=== PATIENT | male | born 1975 | race Caucasian/White ===

== ENCOUNTER 2023-03-02 13:12 | Inpatient (IN) | payer SELFPAY ==
[~2023-03-02] VITALS: Ht 188 cm; Wt 77.7 kg
[2023-03-02] MEDS ORDERED: MOM 30ML SUSPENSION UDC PO PRN (14:05)
[2023-03-02] MEDS ORDERED: MAALOX 30 ML SUSP *UDC PO PRN (14:05)
[2023-03-02] MEDS ORDERED: OLANZapine ORAL DISINTEGRATING TAB 5MG PO PRN (14:05)
[2023-03-02] MEDS ORDERED: diphenhydrAMINE 25MG CAP PO PRN (14:05)
[2023-03-02] MEDS ORDERED: traZODone 50 MG TAB PO PRN (14:05)
[2023-03-02] MEDS ORDERED: IBUPROFEN 400MG TAB PO PRN (14:05)
[2023-03-02] MEDS ORDERED: ACETAMINOPHEN TAB 650MG DOSE (2X325MG) PO PRN (14:05)
[2023-03-03] MEDS ORDERED: LOSARTAN 50MG TABLET PO SCH (09:00)
[2023-03-04] MEDS ORDERED: MOM 30ML SUSPENSION UDC PO PRN (15:25)
[2023-03-04] MEDS ORDERED: IBUPROFEN 400MG TAB PO PRN (15:25)
[2023-03-04] MEDS ORDERED: traZODone 50 MG TAB PO PRN (15:25)
[2023-03-04] MEDS ORDERED: MAALOX 30 ML SUSP *UDC PO PRN (15:25)
[2023-03-04] MEDS ORDERED: LORazepam 1 MG TAB PO PRN (15:25)
[2023-03-04] MEDS ORDERED: ACETAMINOPHEN TAB 650MG DOSE (2X325MG) PO PRN (15:25)
[2023-03-04] MEDS ORDERED: **hydrALAZINE** 50 MG TAB PO PRN (16:30)
[2023-03-04 17:22] VITALS: BP 142/96; TEMP 98; O2SAT 99
[2023-03-04] MEDS: diphenhydrAMINE 25MG CAP PO PRN (19:08)
[2023-03-04] MEDS: LOSARTAN 50MG TABLET PO SCH (20:12)
[2023-03-04] MEDS: DOXYCYCLINE HYCLATE 100MG TABLET PO SCH (20:13)
[2023-03-04] MEDS: LABETALOL 100MG TAB PO SCH (20:13)
[2023-03-04] MEDS ORDERED: DOXYCYCLINE HYCLATE 100MG TABLET PO SCH (21:00)
[2023-03-05] MEDS: diphenhydrAMINE 25MG CAP PO PRN (02:03)
[2023-03-05 06:46] VITALS: BP 170/100; TEMP 99.1; O2SAT 99
[2023-03-05 06:51] VITALS: BP 182/110
[2023-03-05 08:28] VITALS: BP 138/89
[2023-03-05] MEDS: DOXYCYCLINE HYCLATE 100MG TABLET PO SCH ×2 (08:43→19:59)
[2023-03-05] MEDS: CHLORTHALIDONE 25 MG TAB PO SCH (08:43)
[2023-03-05] MEDS: LOSARTAN 50MG TABLET PO SCH ×2 (08:44→19:59)
[2023-03-05] MEDS: LABETALOL 100MG TAB PO SCH ×3 (08:44→19:59)
[2023-03-05 12:44] VITALS: BP 118/80
[2023-03-05 16:03] VITALS: BP 118/70; TEMP 98.4; O2SAT 99
[2023-03-05] MEDS: QUEtiapine FUMARATE 50MG TAB PO SCH (20:00)
[2023-03-06 07:42] VITALS: BP 135/86
[2023-03-06] MEDS: CHLORTHALIDONE 25 MG TAB PO SCH (08:21)
[2023-03-06] MEDS: LABETALOL 100MG TAB PO SCH ×3 (08:21→20:06)
[2023-03-06] MEDS: DOXYCYCLINE HYCLATE 100MG TABLET PO SCH ×2 (08:22→20:06)
[2023-03-06] MEDS: LOSARTAN 50MG TABLET PO SCH ×2 (08:22→20:06)
[2023-03-06 09:07] LABS: CHOLESTEROL RISK RATIO 3.17 (<5); HDL CHOLESTEROL 38.8 MG/DL (>40); LDL CHOLESTEROL 68.2 MG/DL (<100); NON-HDL-C 84.2 MG/DL
[2023-03-06 15:53] VITALS: BP 142/83; TEMP 97.8; O2SAT 100
[2023-03-06] MEDS: QUEtiapine FUMARATE 50MG TAB PO SCH (20:06)
[2023-03-06 21:32] VITALS: BP 128/78
[2023-03-07 06:21] VITALS: BP 138/90; TEMP 97.8; O2SAT 96
[2023-03-07 08:09] VITALS: BP 147/87
[2023-03-07] MEDS: LOSARTAN 50MG TABLET PO SCH ×2 (08:11→20:40)
[2023-03-07] MEDS: LABETALOL 100MG TAB PO SCH ×3 (08:12→20:40)
[2023-03-07] MEDS: CHLORTHALIDONE 25 MG TAB PO SCH (08:12)
[2023-03-07] MEDS: DOXYCYCLINE HYCLATE 100MG TABLET PO SCH ×2 (08:12→20:40)
[2023-03-07 17:58] VITALS: BP 137/83; TEMP 97.6
[2023-03-07 18:00] VITALS: BP 137/83; TEMP 97.6; O2SAT 96
[2023-03-07] MEDS: QUEtiapine FUMARATE 50MG TAB PO SCH (20:40)
[2023-03-08 06:09] VITALS: BP 127/78; TEMP 97.7; O2SAT 98
[2023-03-08 08:32] VITALS: BP 124/90
[2023-03-08 08:34] VITALS: BP 124/90
[2023-03-08] MEDS: LOSARTAN 50MG TABLET PO SCH (08:34)
[2023-03-08] MEDS: LABETALOL 100MG TAB PO SCH (08:34)
[2023-03-08] MEDS: DOXYCYCLINE HYCLATE 100MG TABLET PO SCH (08:34)
[2023-03-08] MEDS: CHLORTHALIDONE 25 MG TAB PO SCH (08:35)
[2023-03-08] MEDS ORDERED: LOSA-528 PO (09:08)
[2023-03-08] MEDS ORDERED: LABE100T6 PO (09:08)
[2023-03-08] MEDS ORDERED: ABIL1TAB11 PO (09:08)
[2023-03-08] MEDS ORDERED: CHLO50TA PO (09:08)
[2023-03-08] MEDS ORDERED: HYDR50TA PO (09:08)
[2023-03-08] MEDS ORDERED: AMLO1TAB25 PO (09:08)
[2023-03-08] MEDS ORDERED: QUET50TA4 PO (09:08)
[2023-03-08] MEDS ORDERED: DOXY100T PO (09:10)
== END 2023-03-08 11:30 | disposition home or self-care (01) | DRG 753 ==
LOC: M PSY 03-04 16:41 → OBSVTOIN 03-04 16:41
PROVIDERS: ADMIT Student in an Organized Health Care Education/Training Program; ATTEND Student in an Organized Health Care Education/Training Program
DX: F31.9 Bipolar disorder, unspecified (principal); F12.10 Cannabis abuse, uncomplicated; Z56.0 Unemployment, unspecified; I10 Essential (primary) hypertension; M54.2 Cervicalgia; G89.29 Other chronic pain; Z81.8 Family history of other mental and behavioral disorders; Z20.822 Contact with and (suspected) exposure to COVID-19; I16.0 Hypertensive urgency; S81.012A Laceration without foreign body, left knee, initial encounter; X58.XXXA Exposure to other specified factors, initial encounter; Y92.9 Unspecified place or not applicable

== ENCOUNTER → 2023-05-11 | Outpatient (REF) | payer BC ==
[~2023-05-11] MED LIST: ABIL1TAB11 PO; AMLO1TAB25 PO; CHLO50TA PO; DOXY100T PO; HYDR50TA PO; LABE100T6 PO; LOSA-528 PO; QUET50TA4 PO
== END ==
LOC: M SFHCPLAZ 16:07
PROVIDERS: ATTEND Student in an Organized Health Care Education/Training Program
DX: Z53.9 Procedure and treatment not carried out, unspecified reason (principal); Z76.89 Persons encountering health services in other specified circumstances

== ENCOUNTER → 2023-08-08 | Outpatient (CLI) | payer BC ==
[~2023-08-08] MED LIST changes: -HYDR50TA PO; +HYDR50TA47 PO
[2023-08-08 14:02] LABS: BASO # 0.1 10^3/uL (0.0-0.2); BASO % 0.9 % (0.0-1.0); EOS # 0.4 10^3/uL (0.0-0.5); EOS % 5.5 % (0.0-3.0); HEMATOCRIT 44.5 % (42.0-52.0); LYMPH # 2.1 10^3/uL (1.5-5.0); LYMPH % 27.6 % (24.0-44.0); MEAN CORPUSCULAR HEMOGLOBIN 28.6 pg (27.0-33.0); MEAN CORPUSCULAR HGB CONC 33.7 g/dl (32.0-36.5); MEAN CORPUSCULAR VOLUME 84.9 fl (80.0-96.0); MONO # 0.7 10^3/uL (0.0-0.8); MONO % 8.9 % (2.0-8.0); NEUTROPHILS # 4.4 10^3/uL (1.5-8.5); NEUTROPHILS % 56.8 % (36.0-66.0); PLATELET COUNT, AUTOMATED 193 10^3/uL (150-450); RED BLOOD COUNT 5.24 10^6/uL (4.30-6.10); WHITE BLOOD COUNT 7.7 10^3/uL (4.0-10.0)
[2023-08-08 14:04] LABS: ALKALINE PHOSPHATASE 93 U/L (46-116); ALT/SGPT 22 U/L (7.0-40); AST/SGOT 10 U/L (<34); BILIRUBIN,TOTAL 0.6 MG/DL (0.3-1.2); BLOOD UREA NITROGEN 17 MG/DL (9-23); CARBON DIOXIDE LEVEL 31 MMOL/L (20-31); CHLORIDE LEVEL 107 MMOL/L (98-107); CHOLESTEROL LEVEL 165 MG/DL (<200); CHOLESTEROL RISK RATIO 3.56 (<5); CREATININE FOR GFR 0.98 MG/DL (0.70-1.30); GLOMERULAR FILTRATION RATE > 60.0 (>60); GLUCOSE, FASTING 91 MG/DL (60-100); HDL CHOLESTEROL 46.3 MG/DL (>40); LDL CHOLESTEROL 89.1 MG/DL (<100); NON-HDL-C 118.7 MG/DL; POTASSIUM SERUM 4.5 MMOL/L (3.5-5.1); SODIUM LEVEL 143 MMOL/L (136-145); TOTAL PROTEIN 7.4 G/DL (5.7-8.2); TRIGLYCERIDES LEVEL 148 MG/DL (<150)
[2023-08-08 14:05] LABS: FREE T4 1.05 NG/DL (0.89-1.76); THYROID STIMULATING HORMONE 2.279 uIU/ML (0.55-4.78)
[2023-08-08 14:20] LABS: HEMOGLOBIN A1c 5.3 % (4.0-6.0)
[2023-08-08 14:27] LABS: MAU/CREAT RATIO 4.6 MCG/MG (0.0-30.0)
== END ==
LOC: M PLALAB 10:54
PROVIDERS: ATTEND Student in an Organized Health Care Education/Training Program
DX: Z76.89 Persons encountering health services in other specified circumstances (principal); F41.9 Anxiety disorder, unspecified; I10 Essential (primary) hypertension

== ENCOUNTER → 2024-07-03 | Outpatient (CLI) | payer OTHER ==
[2024-07-03 15:47] LABS: BASO # 0.1 10^3/uL (0.0-0.2); BASO % 0.6 % (0.0-1.0); EOS # 0.3 10^3/uL (0.0-0.5); EOS % 3.4 % (0.0-3.0); HEMATOCRIT 43.6 % (42.0-52.0); HEMOGLOBIN 15.1 g/dl (13.5-17.5); LYMPH # 2.3 10^3/uL (1.5-5.0); LYMPH % 26.2 % (24.0-44.0); MEAN CORPUSCULAR HEMOGLOBIN 28.7 pg (27.0-33.0); MEAN CORPUSCULAR HGB CONC 34.6 g/dl (32.0-36.5); MEAN CORPUSCULAR VOLUME 82.9 fl (80.0-96.0); MONO # 0.7 10^3/uL (0.0-0.8); MONO % 8.3 % (2.0-8.0); NEUTROPHILS # 5.3 10^3/uL (1.5-8.5); NEUTROPHILS % 61.3 % (36.0-66.0); PLATELET COUNT, AUTOMATED 218 10^3/uL (150-450); RED BLOOD COUNT 5.26 10^6/uL (4.30-6.10); WHITE BLOOD COUNT 8.6 10^3/uL (4.0-10.0)
[2024-07-03 16:16] LABS: IRON (FE) 69 UG/DL (65-175)
[2024-07-03 16:18] LABS: ALKALINE PHOSPHATASE 84 U/L (40-129); ALT/SGPT 20 U/L (7.0-40); AST/SGOT 15 U/L (<34); BILIRUBIN,TOTAL 0.7 MG/DL (0.3-1.2); BLOOD UREA NITROGEN 20 MG/DL (9-23); CALCIUM LEVEL 9.9 MG/DL (8.5-10.1); CARBON DIOXIDE LEVEL 29 MMOL/L (20-31); CHLORIDE LEVEL 105 MMOL/L (98-107); CREATININE FOR GFR 1.13 MG/DL (0.70-1.30); GLOMERULAR FILTRATION RATE > 60.0 (>60); GLUCOSE, FASTING 99 MG/DL (60-100); PERCENT SATURATION 24.3 % (19.7-50.0); POTASSIUM SERUM 3.7 MMOL/L (3.5-5.1); SODIUM LEVEL 143 MMOL/L (136-145); TOTAL IRON BINDING CAPACITY 284 UG/DL (250-425); TOTAL PROTEIN 7.7 G/DL (5.7-8.2)
[2024-07-03 16:21] LABS: FERRITIN 69.5 NG/ML (10.5-307.3)
== END ==
LOC: M PLALAB 12:09
PROVIDERS: ATTEND Student in an Organized Health Care Education/Training Program
DX: D64.9 Anemia, unspecified (principal); E87.6 Hypokalemia

== ENCOUNTER → 2025-04-05 | Outpatient (REF) | payer OTHER | LOC: M SFHCPLAZ 14:50 | PROVIDERS: ATTEND Family Medicine | DX: D64.9 Anemia, unspecified (principal); Z13.29 Encounter for screening for other suspected endocrine disorder; Z13.6 Encounter for screening for cardiovascular disorders; Z53.9 Procedure and treatment not carried out, unspecified reason ==